=== PATIENT | male | born 1945 | race Caucasian/White ===

== ENCOUNTER → 2019-02-13 | Outpatient (CLI) | payer OTHER | END | disposition home or self-care (01) | LOC: LAB SHORT 09:43 → LAB EV 09:43 | DX: J02.9 Acute pharyngitis, unspecified (principal) | CPT/HCPCS: 87070 ==

== ENCOUNTER → 2021-08-17 | Outpatient (CLI) | payer OTHER ==
[~2021-08-17] MED LIST: ATOR10 PO; Aspir 8181 MG PO; GLUCOSAMIN-CHO1 EACH PO; METF500C PO; OMEP20ER PO; RAMI5 PO
== END ==
LOC: LAB SHORT 15:05
DX: L30.8 Other specified dermatitis (principal)
CPT/HCPCS: 88312

== ENCOUNTER 2024-11-20 08:35 | Day surgery (SDC) | payer OTHER ==
[~2024-11-20] VITALS: Ht 182.9 cm; Wt 103.4 kg
[~2024-11-20 08:35] MED LIST changes: +Ropivacaine 0.5% HCL/PF 5 MG/ML 30ML Vial ONE
[2024-11-20] MEDS ORDERED: CeFAZolin Sodium 2,000 MG VIAL ONE (08:50)
[2024-11-20] MEDS ORDERED: LOSA50 PO (09:21)
[2024-11-20] MEDS ORDERED: GLUC500 PO (09:23)
[2024-11-20] MEDS ORDERED: VITAMIN D32000 UNI1 PO (09:24)
[2024-11-20] MEDS ORDERED: Lactated Ringer's 1,000 ML IV ONE (09:35)
[2024-11-20] MEDS ORDERED: FentaNYL Citrate 50 MCG/ML 2 ML Injection ONE (10:15)
[2024-11-20] MEDS ORDERED: propofoL 20 ML IV ONE (10:15)
[2024-11-20] MEDS ORDERED: Phenylephrine HCl 100 MCG/ML-NS 10MLSYR (1MG/10ML) ONE (10:18)
[2024-11-20] MEDS ORDERED: Dexamethasone Sod Phos 10 MG/ML 1ML VIAL ONE (10:19)
[2024-11-20] MEDS ORDERED: Ondansetron HCl 2 MG / ML 2ML Vial ONE (10:19)
[2024-11-20] MEDS ORDERED: Phenylephrine HCl 10mg/ml 1 ml Vial ONE (10:22)
[2024-11-20] MEDS ORDERED: Ketorolac Tromethamine 30mg Vial ONE (10:24)
[2024-11-20] MEDS ORDERED: ePHEDrine Sulfate 50 MG/ML 1ML Injection ONE (10:27)
[2024-11-20] MEDS ORDERED: EPINEPhrine HCl 1 MG/ML 1ML Amp XX ONE (10:32)
[2024-11-20] MEDS ORDERED: HYDROmorphone HCl/Pf 1MG SYR ONE ×2 (10:36→10:54)
--- NOTE | 2024-11-20 14:08 | NUR ---
11/20/24 1408 JIM CHAN PT FRIEND YNES AND SHANNAN WITH PT AT TIME OF DC. PT WAS PLACED IN THE BACKSEAT OF CAR.
[2024-11-20 14:19] VITALS: BP 135/78
== END 2024-11-20 14:00 | disposition home or self-care (01) ==
LOC: ORSCSDS 08:35
PROVIDERS: Orthopaedic Surgery
PROC: 0LQL0ZZ Repair Right Upper Leg Tendon, Open Approach (ICD-10-PCS; principal; 2024-11-20 10:00)
DX: S76.111A Strain of right quadriceps muscle, fascia and tendon, initial encounter (principal); I10 Essential (primary) hypertension; K21.9 Gastro-esophageal reflux disease without esophagitis; E11.9 Type 2 diabetes mellitus without complications; Z79.899 Other long term (current) drug therapy; Z79.84 Long term (current) use of oral hypoglycemic drugs; Z79.82 Long term (current) use of aspirin
CPT/HCPCS: 93005; 93010; C1713; J0171; J0690; J1100; J1171; J1885; J2371; J2405; J2704; J2795; J3010

== ENCOUNTER 2025-06-17 09:30 | Day surgery (SDC) | payer OTHER ==
[~2025-06-17] VITALS: Ht 182.9 cm; Wt 99.9 kg
[~2025-06-17 09:30] MED LIST changes: +GLUC500 PO; +LOSA50 PO; -Ropivacaine 0.5% HCL/PF 5 MG/ML 30ML Vial ONE; +VITAMIN D32000 UNI1 PO
[2025-06-17 12:56] VITALS: BP 109/62
--- NOTE | 2025-06-17 13:16 | NUR ---
06/17/25 1316 Rohan Pearson PT HAD 12 LEAD EKG IN PRE-OP, SHOWING NEW ONSET OF AFLUTTER. MARILYN RN FAXED PRIMARY CARE COMMUNICATION LETTER AND 12 LEAD EKG TO PCP, SINAN LA MD. PER DR. HANCOCK, A NOTE OF NEW ONSET AFLUTTER HAS BEEN SENT TO PCP, AND PT WILL CALL TO MAKE A FOLLOW-UP APPT WITH PCP.
--- NOTE | 2025-06-17 13:41 | NUR ---
06/17/25 [address] HANCOCK NOTIFIED FACE TO FACE OF CHANGE ON 3 LEAD COMPARED TO 12 LEAD COMPLETED NOVEMBER 2024. VO TO COMPLETE 12 LEAD, ATRIAL FLUTTER NOTED. DR HANCOCK REQUESTS DR PARDO CONSULTED TO PROCEED. [address] DR [address]O [address] DR HANCOCK SPOKE PER TELEPHONE, DR HANCOCK NOTIFIED THIS RN FACE TO FACE, OKAY TO PROCEED W/ RN SEDATION. COPY OF 12 LEAD EKG FAXED TO SINAN LA MD.
== END 2025-06-17 13:07 | disposition home or self-care (01) ==
LOC: ORSCSDS 09:30
PROVIDERS: Internal Medicine Gastroenterology
PROC: 0DBL8ZX Excision of Transverse Colon, Via Natural or Artificial Opening Endoscopic, Diagnostic (ICD-10-PCS; principal; 2025-06-17 11:15)
PROC: 0DBH8ZX Excision of Cecum, Via Natural or Artificial Opening Endoscopic, Diagnostic (ICD-10-PCS; principal; 2025-06-17 11:15)
PROC: 0DBK8ZX Excision of Ascending Colon, Via Natural or Artificial Opening Endoscopic, Diagnostic (ICD-10-PCS; principal; 2025-06-17 11:15)
DX: Z12.11 Encounter for screening for malignant neoplasm of colon (principal); Z86.0101 Personal history of adenomatous and serrated colon polyps; K51.40 Inflammatory polyps of colon without complications; D12.2 Benign neoplasm of ascending colon; D12.3 Benign neoplasm of transverse colon; K57.30 Diverticulosis of large intestine without perforation or abscess without bleeding; I10 Essential (primary) hypertension; E78.1 Pure hyperglyceridemia; Z79.899 Other long term (current) drug therapy
CPT/HCPCS: 82947; 88305; 93005; 93010; J2704; J7120

== ENCOUNTER → 2025-08-25 | Outpatient (CLI) | payer OTHER ==
[2025-08-25 18:51] LABS: BASOPHILS ABSOLUTE AUTO 0.05 K/mm3 (0.00-0.23); BASOPHILS PERCENT AUTO 1 % (0-2); EOSINOPHILS ABSOLUTE AUTO 0.36 K/mm3 (0.00-0.68); EOSINOPHILS PERCENT AUTO 5 % (0-6); Hematocrit 39.2 % (37.0-53.0); Hemoglobin 12.6 g/dL (13.5-17.5); IMMATURE GRAN ABSOLUTE AUTO 0.02 K/mm3 (0.00-0.10); IMMATURE GRAN PERCENT AUTO 0 % (0-1); LYMPHOCYTES ABSOLUTE AUTO 1.27 K/mm3 (0.84-5.20); LYMPHOCYTES PERCENT AUTO 19 % (21-46); MONOCYTES ABSOLUTE AUTO 0.94 K/mm3 (0.16-1.47); MONOCYTES PERCENT AUTO 14 % (4-13); Mean Corpuscular HGB Conc 32.1 g/dL (31.5-36.5); Mean Corpuscular Volume 97 fL (80-100); NEUTROPHILS ABSOLUTE AUTO 4.02 K/mm3 (1.96-9.15); NEUTROPHILS PERCENT AUTO 60 % (41-73); NRBC ABSOLUTE 0.00 K/mm3 (0.00-0.02); NRBC Auto 0.0 /100 WBC (0.0-0.2); Platelet Count 263 K/mm3 (150-400); RDW Coefficient Variation 15.2 % (11.7-14.2); RDW Standard Deviation 54.4 fL (35.1-46.3)
[2025-08-25 19:01] LABS: Alanine Aminotransfer (ALT/SGP 29.0 U/L (12-78); Albumin, Blood 3.3 g/dL (3.4-5.0); Albumin/Globulin Ratio 0.8 (0.8-1.8); Anion Gap 8.0 mmol/L (3-11); Aspartate Aminotrans (AST/SGOT 26.0 U/L (12-37); Bilirubin, Total 0.5 mg/dL (0.1-1.0); Blood Urea Nitrogen 24.0 mg/dL (8-24); CO2, Blood 27.0 mmol/L (21-32); Calcium, Blood 9.1 mg/dL (8.5-10.1); Chloride, Blood 107.0 mmol/L (98-108); Creatinine, Blood 1.11 mg/dL (0.60-1.20); Globulin, Blood 4.0 g/dL (2.2-4.0); Glucose, Blood 120.0 mg/dL (70-99); Potassium, Blood 4.3 mmol/L (3.5-5.5); Sodium, Blood 138.0 mmol/L (136-145); Total Protein, Blood 7.3 g/dL (6.4-8.2)
== END ==
LOC: LAB SHORT 17:15 → LAB 17:15
PROVIDERS: Internal Medicine
DX: I48.3 Typical atrial flutter (principal)
CPT/HCPCS: 80053; 83880; 85025